=== PATIENT | male | born 1960 | race Caucasian/White ===

== ENCOUNTER 2016-05-06 00:06 | Emergency (ER) | payer OTHER ==
[~2016-05-06] VITALS: Ht 175.3 cm; Wt 89.0 kg
[2016-05-06 00:08] VITALS: BP 201/96; PULSE 98; RESP 18; TEMP 97.9; O2SAT 96
[2016-05-06 04:18] VITALS: BP 138/83; PULSE 76; RESP 16; TEMP 98.4; O2SAT 96
[2016-05-06 05:27] VITALS: BP 151/89; PULSE 69; RESP 18; O2SAT 95
--- NOTE | 2016-05-06 06:17 | PD ---
HPI Chief Complaint: Hypertension Time Seen by Provider: 05:32 Travel History International Travel<30 days: No Contact w/Intl Traveler<30days: No Traveled to known affect area: No History of Present Illness HPI Patient's 55 years old. He arrives complaining of a sharp shooting pain up her draining in his feet radiating up his leg to his stomach and into his head. The onset occurred while he was walking. He has walking quite a bit in fact he just returned to [facility] yesterday from [place] of state. After waiting in the waiting room all night long the shooting pains in the legs resolved and he has some mild pain in the occipital scalp distribution. He reports a history of hypertension and was previously on lisinopril 20 mg daily. He states typically ambulation causes the pain. He has had no trauma. [facility] Past Medical History Cardiovascular Problems: Yes (HTN) Hypertension: Yes Tetanus Vaccination: < 5 Years Influenza Vaccination: No Past Surgical History Other Surgery: Yes (HERNIA REPAIR) Social History Alcohol Use: No Tobacco Use: Yes (1 PPD ) Substance Use: No Allergies-Medications (Allergen,Severity, Reaction): Coded Allergies: Buspar (Verified Adverse Reaction, Intermediate, Burning, 05/06/16) Mobic (Verified Adverse Reaction, Intermediate, Burning, 05/06/16) Reported Meds & Prescriptions Reported Meds & Active Scripts Active No Active Prescriptions or Reported Medications Review of Systems Except as stated in HPI: all other systems reviewed are Neg Physical Exam Narrative GENERAL: 55 yo M, wnwd, nad SKIN: Warm and dry. HEAD: Atraumatic. Normocephalic. EYES: Pupils equal and round. No scleral icterus. No injection or drainage. ENT: No nasal bleeding or discharge. Mucous membranes pink and moist. NECK: Trachea midline. No JVD. CARDIOVASCULAR: Regular rate and rhythm. No murmur appreciated. RESPIRATORY: No accessory muscle use. Clear to auscultation. Breath sounds equal bilaterally. GASTROINTESTINAL: Abdomen soft, non-tender, nondistended. Hepatic and splenic margins not palpable. MUSCULOSKELETAL: No obvious deformities. No clubbing. No cyanosis. No edema. NEUROLOGICAL: Awake and alert. No obvious cranial nerve deficits. Motor grossly within normal limits. Normal speech. PSYCHIATRIC: Appropriate mood and affect; insight and judgment normal. Data Data Last Documented VS Vital Signs Date Time Temp Pulse Resp B/P Pulse Ox O2 Delivery O2 Flow Rate FiO2 2/3/17 05:27 69 18 151/89 95 Room Air 05/06/16 04:18 98.4 MDM Medical Decision Making Medical Screen Exam Complete: Yes Emergency Medical Condition: Yes Medical Record Reviewed: Yes Differential Diagnosis HTN, muscle strain, dehydration, malingering Narrative Course Lisinopril script. f/u w PMD. Diagnosis Primary Impression: HTN (hypertension) Qualified Code: I15.9 - Secondary hypertension Referrals: Patient Assistance Program 2 days Additional Instructions: You have a choice when it comes to health care, and we are glad that you chose [facility]. Hopefully, we have met your expectations on today's visit. You are welcome to return to [facility] at any time, as we are committed to meeting the health care needs of our community. Med/Other Pt SpecificInfo: Prescription(s) given Scripts Lisinopril 20 Mg Tab20 Mg PO DAILY #30 TAB Ref 2 Prov:Adilson Patel MD 05/06/16 Disposition: 01 DISCHARGE HOME Condition: Stable Adilson Patel MD May 06, 2016 06:17
[2016-05-06] MEDS ORDERED: LISI-515 PO (06:35)
[2016-05-06 06:51] VITALS: BP 155/74
[2016-06-20] MEDS ORDERED: METH125I2 IM (12:02)
[2016-08-01] MEDS ORDERED: FAMO20TA2 PO (10:33)
== END 2016-05-06 06:54 | disposition home or self-care (01) ==
LOC: NEPC 00:06
DX: I15.9 Secondary hypertension, unspecified (principal); R51 Headache; F17.200 Nicotine dependence, unspecified, uncomplicated
CPT/HCPCS: 99283

== ENCOUNTER 2016-06-09 14:11 | Observation (INO) | payer OTHER ==
[~2016-06-09] VITALS: Ht 175.3 cm; Wt 95.0 kg
[~2016-06-09 14:11] MED LIST: LISI-515 PO
[2016-06-09 14:15] VITALS: BP 119/68; PULSE 92; RESP 12; TEMP 99.7; O2SAT 92
[2016-06-09] MEDS ORDERED: SODIUM CHLORIDE 0.9% FLUSH 5 ML FLUSH IVF PRN ×2 (16:45→19:30)
[2016-06-09] MEDS ORDERED: MORPHINE SULFATE 4 MG/ML INJ IV PUSH ONE ×2 (16:45→19:30)
--- NOTE | 2016-06-09 16:58 | PD ---
HPI . Chest pain and shortness of breath Chief Complaint: Chest Pain Time Seen by Provider: 16:47 Travel History International Travel<30 days: No Contact w/Intl Traveler<30days: No Traveled to known affect area: No History of Present Illness HPI Patient presents with a three-day history of chest pain and shortness of breath. It has been worse for the past 2 days. He states that he is unable to smoke secondary to the pain. Pain is exacerbated by respirations. He does have a cough and a subjective fever. Patient initially states that he has COPD but takes no medication for it. However, subsequent states that he does have Advair which she uses twice daily rescue albuterol inhaler that he uses as needed. He has not used her rescue inhaler today. PFSH Past Medical History Cardiovascular Problems: Yes (HTN) Hypertension: Yes Past Surgical History Other Surgery: Yes (HERNIA REPAIR) Social History Alcohol Use: No Tobacco Use: Yes (1 PPD ) Substance Use: No Allergies-Medications (Allergen,Severity, Reaction): Coded Allergies: Buspar (Verified Adverse Reaction, Intermediate, Burning, 06/09/16) Mobic (Verified Adverse Reaction, Intermediate, Burning, 06/09/16) Reported Meds & Prescriptions Reported Meds & Active Scripts Active Lisinopril 20 Mg Tab 20 Mg PO DAILY Review of Systems Except as stated in HPI: all other systems reviewed are Neg General / Constitutional: Positive: Fever, Chills Cardiovascular: Positive: Chest Pain or Discomfort Respiratory: Positive: Cough, Shortness of Breath, Pleuritic Pain Physical Exam Narrative GENERAL: Patient who has a persistent cough and is otherwise in no acute distress. SKIN: Warm and dry. HEAD: Atraumatic. Normocephalic. EYES: Pupils equal and round. ENT: No nasal bleeding or discharge. Mucous membranes pink and moist. NECK: Trachea midline. Neck is supple. CARDIOVASCULAR: Regular rate and rhythm. Heart sounds are normal. RESPIRATORY: No accessory muscle use. Lungs have diffuse expiratory wheezing. GASTROINTESTINAL: Abdomen soft, non-tender, nondistended. MUSCULOSKELETAL: No obvious deformities. No edema. NEUROLOGICAL: Awake and alert. No obvious cranial nerve deficits. Motor grossly within normal limits. Normal speech. PSYCHIATRIC: Appropriate mood and affect; insight and judgment normal. Data Data Last Documented VS Vital Signs Date Time Temp Pulse Resp B/P Pulse Ox O2 Delivery O2 Flow Rate FiO2 06/09/16 14:15 99.7 92 12 119/68 92 Orders Electrocardiogram (06/09/16 ) Basic Metabolic Panel (Bmp) (06/09/16 16:42) Ckmb (Isoenzyme) Profile (06/09/16 16:42) Complete Blood Count With Diff (06/09/16 16:42) Magnesium (Mg) (06/09/16 16:42) Prothrombin Time / Inr (Pt) (06/09/16 16:42) Act Partial Throm Time (Ptt) (06/09/16 16:42) Troponin I (06/09/16 16:42) Ecg Monitoring (06/09/16 16:42) Bilateral Bp Monitoring (06/09/16 16:42) Iv Access Insert/Monitor (06/09/16 16:42) Oximetry (06/09/16 16:42) Oxygen Administration (06/09/16 16:42) Morphine Inj (Morphine Inj) (06/09/16 16:45) Sodium Chloride 0.9% Flush (Ns Flush) (06/09/16 16:45) Ct Pulmonary Angiogram (06/09/16 16:42) Albuterol-Ipratropium Neb (Duoneb Neb) (06/09/16 17:00) Methylprednisolone So Succ Inj (Solumedr (06/09/16 17:00) MDM Medical Decision Making Medical Screen Exam Complete: Yes Emergency Medical Condition: Yes Interpretation(s) EKG shows sinus bradycardia with a ventricular rate of 56. Elevation or depression. Differential Diagnosis Differential diagnosis of dyspnea includes but is not limited to congestive heart failure, pneumonia, wheezing, pneumothorax, pulmonary embolism Narrative Course Patient presents for the evaluation of chest pain and shortness of breath. He is wheezing. He will be given nebulizer treatments and Solu-Medrol pending his workup. His care is being turned over to Dr. Ring. Diagnosis Primary Impression: Chest pain Qualified Code: R07.9 - Chest pain, unspecified type Additional Impression: Dyspnea Qualified Code: R06.00 - Dyspnea, unspecified type Adri Cedillo MD Jun 09, 2016 16:58
[2016-06-09] MEDS ORDERED: methylPREDNISolone SOD SUCC 125 MG/2 ML VIAL IV PUSH ONE (17:00)
[2016-06-09] MEDS: RESP: ALBUTEROL 2.5 MG/IPRATROPIUM 0.5 MG NEB (SCH) INH ×2 (17:15→17:16)
[2016-06-09 17:24] VITALS: BP 137/81; PULSE 79; RESP 20; O2SAT 98
[2016-06-09 17:56] LABS: AUTOMATED NEUTROPHIL # 2.7 TH/MM3 (1.8-7.7); BASOPHIL % 0.4 % (0.0-2.0); EOSINOPHIL % 0.2 % (0.0-4.0); HEMATOCRIT 45.1 % (39.0-51.0); HEMO FLAGS DIFF FINAL; LYMPH % 26.8 % (9.0-44.0); LYMPHOCYTE # 1.2 TH/MM3 (1.0-4.8); MEAN CELL VOLUME 90.4 FL (80.0-100.0); MEAN CORPUSCULAR HEMOGLOBIN 32.2 PG (27.0-34.0); MEAN CORPUSCULAR HGB CONC 35.7 % (32.0-36.0); MONO % 12.1 % (0.0-8.0); NEUT % 60.5 % (16.0-70.0); PLATELET COUNT 144 TH/MM3 (150-450); RED BLOOD COUNT 4.99 MIL/MM3 (4.50-5.90); RED CELL DISTRIBUTION WIDTH 13.5 % (11.6-17.2); WHITE BLOOD COUNT 4.5 TH/MM3 (4.0-11.0)
[2016-06-09 18:08] VITALS: BP 137/81; PULSE 91; RESP 18; O2SAT 97
[2016-06-09 18:10] LABS: ANION GAP 9 MEQ/L (5-15); BICARBONATE 27.1 MEQ/L (21.0-32.0); BLOOD UREA NITROGEN 19 MG/DL (7-18); CHLORIDE 101 MEQ/L (98-107); GLOMERULAR FILTRATION RATE 73 ML/MIN (>89); POTASSIUM 4.1 MEQ/L (3.5-5.1); SODIUM (NA) 137 MEQ/L (136-145)
[2016-06-09 18:13] VITALS: BP 134/75; PULSE 90; RESP 18
[2016-06-09 18:13] LABS: CREATINE KINASE 196 U/L (39-308)
[2016-06-09 18:26] LABS: CKMB 1.6 NG/ML (0.5-3.6)
[2016-06-09] MEDS ORDERED: IOHEXOL 350 MG/ML 10 ML VIAL (for RAD DIAG) IV ONE (18:42)
--- NOTE | 2016-06-09 18:59 | RADRPT ---
EXAM DATE/TIME: 06/09/2016 18:41 [place] COMPARISON: No previous studies available for comparison. INDICATIONS : Short of breath; evaluate for pulmonary embolism. IV CONTRAST: 75 cc Omnipaque 350 (iohexol) IV RADIATION DOSE: 23.33 CTDIvol (mGy) MEDICAL HISTORY : Hypertension. SURGICAL HISTORY : None. ENCOUNTER: Initial ACUITY: 1 day PAIN SCALE: 0/10 LOCATION: chest TECHNIQUE: Volumetric scanning of the chest was performed using a pulmonary embolism protocol MIP images were re constructed. Using automated exposure control and adjustment of the mA and/or kV according to patien t size, radiation dose was kept as low as reasonably achievable to obtain optimal diagnostic quality images. FINDINGS: PULMONARY ARTERIES: No filling defects are seen in the pulmonary arteries through the segmental level. LUNGS: There is no consolidation or pneumothorax . No concerning pulmonary nodule is visualized. PLEURAE: There is no pleural thickening or pleural effusion. MEDIASTINUM: There is good visualization of the great vessels of the middle mediastinum. A 12 x 17 mm right hilar lymph node is present, nonspecific. No mediastinal lymphadenopathy seen. Calcification versus stent s een in the left anterior descending coronary artery. MUSCULOSKELETAL: Within normal limits for patient age. MISCELLANEOUS: Or abdomen only partly included on this study. Probable hepatosplenomegaly. There also appears to be diffuse wall thickening of the stomach. A small hiatal hernia is present. CONCLUSION: 1. No large pulmonary embolus. 2. 12 x 17 mm right hilar lymph node, nonspecific. 3. Calcification versus stent left anterior descending coronary artery. 4. Suspected hepatosplenomegaly. There is also apparent diffuse wall thickening of the stomach as cou ld be seen in the setting of a gastritis. Small hiatal hernia. Rodríguez Hogue MD on June 09, 2016 at 18:55 Board Certified Radiologist. This report was verified electronically.
[2016-06-09] MEDS ORDERED: PRED20 PO (19:08)
--- NOTE | 2016-06-09 19:08 | PD ---
Data Data Last Documented VS Vital Signs Date Time Temp Pulse Resp B/P Pulse Ox O2 Delivery O2 Flow Rate FiO2 06/09/16 18:13 90 18 134/75 06/09/16 18:08 97 06/09/16 17:24 Nasal Cannula 2 06/09/16 14:15 99.7 Orders Electrocardiogram (06/09/16 ) Basic Metabolic Panel (Bmp) (06/09/16 16:42) Ckmb (Isoenzyme) Profile (06/09/16 16:42) Complete Blood Count With Diff (06/09/16 16:42) Magnesium (Mg) (06/09/16 16:42) Prothrombin Time / Inr (Pt) (06/09/16 16:42) Act Partial Throm Time (Ptt) (06/09/16 16:42) Troponin I (06/09/16 16:42) Ecg Monitoring (06/09/16 16:42) Bilateral Bp Monitoring (06/09/16 16:42) Iv Access Insert/Monitor (06/09/16 16:42) Oximetry (06/09/16 16:42) Oxygen Administration (06/09/16 16:42) Morphine Inj (Morphine Inj) (06/09/16 16:45) Sodium Chloride 0.9% Flush (Ns Flush) (06/09/16 16:45) Ct Pulmonary Angiogram (06/09/16 16:42) Albuterol-Ipratropium Neb (Duoneb Neb) (06/09/16 17:00) Methylprednisolone So Succ Inj (Solumedr (06/09/16 17:00) CKMB (06/09/16 17:22) CKMB% (06/09/16 17:22) Iohexol 350 Inj (Omnipaque 350 Inj) (06/09/16 18:42) Labs Laboratory Tests Test 06/09/16 17:22 White Blood Count 4.5 TH/MM3 Red Blood Count 4.99 MIL/MM3 Hemoglobin 16.1 GM/DL Hematocrit 45.1 % Mean Corpuscular Volume 90.4 FL Mean Corpuscular Hemoglobin 32.2 PG Mean Corpuscular Hemoglobin 35.7 % Concent Red Cell Distribution Width 13.5 % Platelet Count 144 TH/MM3 Mean Platelet Volume 10.5 FL Neutrophils (%) (Auto) 60.5 % Lymphocytes (%) (Auto) 26.8 % Monocytes (%) (Auto) 12.1 % Eosinophils (%) (Auto) 0.2 % Basophils (%) (Auto) 0.4 % Neutrophils # (Auto) 2.7 TH/MM3 Lymphocytes # (Auto) 1.2 TH/MM3 Monocytes # (Auto) 0.5 TH/MM3 Eosinophils # (Auto) 0.0 TH/MM3 Basophils # (Auto) 0.0 TH/MM3 CBC Comment DIFF FINAL Differential Comment Prothrombin Time 11.0 SEC Prothromb Time International 1.0 RATIO Ratio Activated Partial 33.0 SEC Thromboplast Time Sodium Level 137 MEQ/L Potassium Level 4.1 MEQ/L Chloride Level 101 MEQ/L Carbon Dioxide Level 27.1 MEQ/L Anion Gap 9 MEQ/L Blood Urea Nitrogen 19 MG/DL Creatinine 1.06 MG/DL Estimat Glomerular Filtration 73 ML/MIN Rate Random Glucose 85 MG/DL Calcium Level 9.1 MG/DL Magnesium Level 2.0 MG/DL Total Creatine Kinase 196 U/L Creatine Kinase MB 1.6 NG/ML Troponin I LESS THAN 0.02 NG/ML MDM Supervised Visit with ELAN: No Narrative Course This is a 55-year-old male who was seen primarily by Dr. Cedillo and treated for a COPD exacerbation. Labs were obtained which were reassuring with a normal troponin. CT angiogram was performed which demonstrates no pulmonary embolism. Patient will be discharged with prednisone. The patient was provided copy of his CT scan results and the incidental findings were discussed with him. Diagnosis Primary Impression: Chest pain Qualified Code: R07.9 - Chest pain, unspecified type Additional Impression: Dyspnea Qualified Code: R06.00 - Dyspnea, unspecified type Patient Instructions: General Instructions Additional Instruction: If you develop severe shortness of breath, chest pain, or difficulty breathing return to the emergency department. Use albuterol every 4 hours for the next 2 days. Then use as needed for wheezing. Complete your course of steroids. Follow up with your primary care physician in 2-3 days if your symptoms have not improved. Med/Other Pt SpecificInfo: Prescription(s) given Scripts Prednisone 20 Mg Tab40 Mg PO DAILY 4 Days Prov:Radha Ring MD 06/09/16 Disposition: 01 DISCHARGE HOME Condition: Stable Radha Ring MD Jun 09, 2016 19:08
--- NOTE | 2016-06-09 19:26 | PD ---
Data Data Last Documented VS Vital Signs Date Time Temp Pulse Resp B/P Pulse Ox O2 Delivery O2 Flow Rate FiO2 06/09/16 18:13 90 18 134/75 06/09/16 18:08 97 06/09/16 17:24 Nasal Cannula 2 06/09/16 14:15 99.7 Orders Electrocardiogram (06/09/16 ) Basic Metabolic Panel (Bmp) (06/09/16 16:42) Ckmb (Isoenzyme) Profile (06/09/16 16:42) Complete Blood Count With Diff (06/09/16 16:42) Magnesium (Mg) (06/09/16 16:42) Prothrombin Time / Inr (Pt) (06/09/16 16:42) Act Partial Throm Time (Ptt) (06/09/16 16:42) Troponin I (06/09/16 16:42) Ecg Monitoring (06/09/16 16:42) Bilateral Bp Monitoring (06/09/16 16:42) Iv Access Insert/Monitor (06/09/16 16:42) Oximetry (06/09/16 16:42) Oxygen Administration (06/09/16 16:42) Morphine Inj (Morphine Inj) (06/09/16 16:45) Sodium Chloride 0.9% Flush (Ns Flush) (06/09/16 16:45) Ct Pulmonary Angiogram (06/09/16 16:42) Albuterol-Ipratropium Neb (Duoneb Neb) (06/09/16 17:00) Methylprednisolone So Succ Inj (Solumedr (06/09/16 17:00) CKMB (06/09/16 17:22) CKMB% (06/09/16 17:22) Iohexol 350 Inj (Omnipaque 350 Inj) (06/09/16 18:42) Aspirin Chew (Aspirin Chew) (06/09/16 19:30) Labs Laboratory Tests Test 06/09/16 17:22 White Blood Count 4.5 TH/MM3 Red Blood Count 4.99 MIL/MM3 Hemoglobin 16.1 GM/DL Hematocrit 45.1 % Mean Corpuscular Volume 90.4 FL Mean Corpuscular Hemoglobin 32.2 PG Mean Corpuscular Hemoglobin 35.7 % Concent Red Cell Distribution Width 13.5 % Platelet Count 144 TH/MM3 Mean Platelet Volume 10.5 FL Neutrophils (%) (Auto) 60.5 % Lymphocytes (%) (Auto) 26.8 % Monocytes (%) (Auto) 12.1 % Eosinophils (%) (Auto) 0.2 % Basophils (%) (Auto) 0.4 % Neutrophils # (Auto) 2.7 TH/MM3 Lymphocytes # (Auto) 1.2 TH/MM3 Monocytes # (Auto) 0.5 TH/MM3 Eosinophils # (Auto) 0.0 TH/MM3 Basophils # (Auto) 0.0 TH/MM3 CBC Comment DIFF FINAL Differential Comment Prothrombin Time 11.0 SEC Prothromb Time International 1.0 RATIO Ratio Activated Partial 33.0 SEC Thromboplast Time Sodium Level 137 MEQ/L Potassium Level 4.1 MEQ/L Chloride Level 101 MEQ/L Carbon Dioxide Level 27.1 MEQ/L Anion Gap 9 MEQ/L Blood Urea Nitrogen 19 MG/DL Creatinine 1.06 MG/DL Estimat Glomerular Filtration 73 ML/MIN Rate Random Glucose 85 MG/DL Calcium Level 9.1 MG/DL Magnesium Level 2.0 MG/DL Total Creatine Kinase 196 U/L Creatine Kinase MB 1.6 NG/ML Troponin I LESS THAN 0.02 NG/ML MDM Supervised Visit with ELAN: No Narrative Course This is a 55-year-old male who presents to the emergency department with exertional chest pain and shortness of breath. He does have a history of COPD and on arrival he had been wheezing per Dr. Cedillo' assessment. He received bronchodilator treatments and methylprednisolone in the emergency department and his wheezing has improved. I didn't see the patient on arrival. He does describe chest discomfort in both sides of his chest which is exertional and resolves at rest. His CT of the chest demonstrates calcification in the LAD. He does have Q waves in the inferior leads on EKG. Patient hasn't had a stress test in several years. I think given his CT findings, the exertional component to his chest pain and his abnormal EKG, I think it is reasonable to keep him for serial cardiac enzymes and risk stratification in the chest pain center. I think he is stable for the chest pain center. I'll write for some as needed albuterol and he should be discharged with prednisone which I have written for, but I think the question for admission is primarily whether this chest pain is cardiac in nature. Diagnosis Primary Impression: Chest pain Qualified Code: R07.9 - Chest pain, unspecified type Additional Impression: Dyspnea Qualified Code: R06.00 - Dyspnea, unspecified type Patient Instructions: General Instructions Additional Instruction: If you develop severe shortness of breath, chest pain, or difficulty breathing return to the emergency department. Use albuterol every 4 hours for the next 2 days. Then use as needed for wheezing. Complete your course of steroids. Follow up with your primary care physician in 2-3 days if your symptoms have not improved. Scripts Prednisone 20 Mg Tab40 Mg PO DAILY 4 Days Prov:Radha Ring MD 06/09/16 Disposition: 01 DISCHARGE HOME Condition: Stable Radha Ring MD Jun 09, 2016 19:26
[2016-06-09] MEDS ORDERED: ASPIRIN 81 MG CHEW TAB CHEW ONE (19:30)
[2016-06-09] MEDS ORDERED: RESP: ALBUTEROL 2.5 MG/3 ML NEB (SCH) NEB PRN (19:30)
[2016-06-09] MEDS: SODIUM CHLORIDE 0.9% FLUSH 5 ML FLUSH IVF SCH (20:51)
[2016-06-09 21:32] VITALS: BP 123/65; PULSE 70; RESP 16; O2SAT 95
[2016-06-10] VITALS (7 sets, daily range): BP systolic 119–132; BP diastolic 60–76; PULSE 60–85; RESP 18; TEMP 97.8–98.4; O2SAT 95–97
[2016-06-10] MEDS ORDERED: NITROGLYCERIN 0.4 MG SL 25 TABS/BTL SL PRN (08:30)
[2016-06-10] MEDS ORDERED: ACETAMINOPHEN 500 MG CPLT PO PRN (08:30)
[2016-06-10] MEDS ORDERED: ONDANSETRON HCL 4 MG/2 ML VIAL IV PRN (08:30)
[2016-06-10] MEDS ORDERED: LISINOPRIL 20 MG TAB PO SCH (09:00)
[2016-06-10] MEDS ORDERED: ASPIRIN 325 MG TAB PO SCH (09:00)
[2016-06-10] MEDS: SODIUM CHLORIDE 0.9% FLUSH 5 ML FLUSH IVF SCH (09:08)
--- NOTE | 2016-06-10 09:43 | HHI.HP ---
HPI Primary Care Physician No Primary Care Physician Chief Complaint Chest pain and shortness of breath History of Present Illness 55-year-old patient with known hypertension and COPD presents to the emergency room with 2 days of coughing, chest pain, and shortness of breath. Was unable to smoked for 2 days due to pain. Taking deep breaths and coughing makes chest pain worse. 8 different type of chest pain did not begin until arrival to emergency room. Location right lower chest, radiates to right anterior chest. Severity 7/10, described as "waves of shooting pain that last only a few minutes." Associated symptoms nausea, no vomiting or diaphoresis. No precipitating or relieving factors. Also complains of generalized discomfort throughout his whole body for at least 6 months. Review of Systems General: No fatigue,weakness, fever, chills, or recent illness HEENT: No BASHIR, no vision changes, no nasal congestion or drainage, no dysphasia CV: Continues to have chest discomfort when taking deep breath or coughing. Right-sided chest shooting pains improved. No chest pressure or palpitations. Endorses intermittent leg pain "for a long time. "Leg pain made worse with walking improved with rest. RESP: States "my lungs still hurt to breathe." Shortness of breath has improved. Coughing continues, improved somewhat after receiving steroids. No hemoptysis. GI: No nausea, vomiting, bowel changes, diarrhea, constipation, pain, distention , melena, blood in the stool. No change in appetite, no unintentional weight gain or weight loss : No dysuria, urgency, frequency. Endorses while living in [place] in [place] he was told he has prostate polyps. Never completed recommended prostate biopsy. Erectile dysfunctionCialis prescription although is unable to afford. EXT: No lower leg edema. 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 MS: Chronic lower back pain, No change in ROM NEURO: No change in memory, dizziness, difficulty with balance, LOC, motor/ sensory deficits PSYCH: No anxiety or depression. Is currently homeless and unemployed. SKIN: No rashes, no concerning lesions Past Family Social History Allergies: Coded Allergies: Buspar (Verified Adverse Reaction, Intermediate, Burning, 06/09/16) Mobic (Verified Adverse Reaction, Intermediate, Burning, 06/09/16) Past Medical History Hypertension, BPH, prostate polyps, chronic low back pain Past Surgical History Hernia repair Reported Medications Reported Meds & Active Scripts Active Prednisone 20 Mg Tab 40 Mg PO DAILY 4 Days Lisinopril 20 Mg Tab 20 Mg PO DAILY Active Ordered Medications Current Medications Medications (Trade) Dose Ordered Sig/Alex Route Start Time Stop Time Status Last Admin (Tylenol) 500 mg Q4H PRN PO 06/10/16 08:30 (Zofran Inj) 4 mg Q6H PRN IV 06/10/16 08:30 (Nitrostat Sl) 0.4 mg Q5M PRN SL 06/10/16 08:30 (Aspirin) 325 mg DAILY PO 06/10/16 09:00 06/10/16 09:08 (Prinivil) 20 mg DAILY PO 06/10/16 09:00 06/10/16 09:08 (Morphine Inj) 4 mg NOW ONCE IV 06/10/16 10:00 06/10/16 10:01 Family History Noncontributory for early onset cardiovascular disease. States mother and father of lung/throat cancer. Social History He is , unemployed, homeless. Smokes half pack of cigarettes daily this is down from 1-1/2 pack daily has smoked since age 18. Denies any alcohol or illegal drug use. Known hypertension. No known diabetes. Years ago was told his lipid panel was borderline. Past cardiac testing Few years ago had an exercise stress test which was unremarkable. Never had cardiac catheterization or required a striper spray gun. Physical Exam Vital Signs Vital Signs Date Time Temp Pulse Resp B/P Pulse Ox O2 Delivery O2 Flow Rate FiO2 06/10/16 09:04 97 Nasal Cannula 2.00 06/10/16 08:00 97.8 73 18 132/60 97 06/10/16 08:00 62 06/10/16 04:09 60 06/10/16 03:41 98.4 85 18 121/76 97 06/10/16 03:00 60 06/10/16 00:00 98.2 72 18 119/63 95 06/09/16 21:32 70 16 123/65 95 Nasal Cannula 2 06/09/16 18:13 90 18 134/75 06/09/16 18:08 91 18 137/81 97 06/09/16 17:24 98 Nasal Cannula 2 06/09/16 17:24 97 Nasal Cannula 2 06/09/16 17:24 79 20 137/81 06/09/16 17:24 98 Nasal Cannula 2.00 06/09/16 14:15 99.7 92 12 119/68 92 Physical Exam GENERAL: Alert WN, WD, NAD, pleasant, male who appears older than stated age HEAD: NC, AT EYES: Sclera clear, conjunctiva without injection, pupils equal and round ENT: Mucous membranes pink and moist NECK: Supple, no masses, trachea midline CV: RRR, without murmur, rub, gallop, no JVD, S1-S2 no S3-S4. No carotid bruits RESP: lungs throughout bilateral prolonged expiratory phase, expiratory wheezing. Diminished lung sounds throughout. No crackles. Symmetrical chest rise, nonlabored, able to speak in full sentences. ABD: Soft, NT, ND, no masses, positive bowel tones BACK: No CVAT, no scoliosis EXT: Pulses +14, no dependent edema MS: Normal tone 4 extremities, nontender, no obvious deformities, full range of motion NEURO: CN II through CN XII grossly intact, motor strength 5/5, gait WNL PSYCH: A+O 3, pleasant affect, appropriate speech, appropriate mood and affect , insight and judgment SKIN: Normal turgor, normal texture, no lesions, no rashes Laboratory Laboratory Tests Test 06/09/16 06/09/16 06/09/16 17:22 20:30 23:40 White Blood Count 4.5 Red Blood Count 4.99 Hemoglobin 16.1 Hematocrit 45.1 Mean Corpuscular Volume 90.4 Mean Corpuscular Hemoglobin 32.2 Mean Corpuscular Hemoglobin 35.7 Concent Red Cell Distribution Width 13.5 Platelet Count 144 Mean Platelet Volume 10.5 Neutrophils (%) (Auto) 60.5 Lymphocytes (%) (Auto) 26.8 Monocytes (%) (Auto) 12.1 Eosinophils (%) (Auto) 0.2 Basophils (%) (Auto) 0.4 Neutrophils # (Auto) 2.7 Lymphocytes # (Auto) 1.2 Monocytes # (Auto) 0.5 Eosinophils # (Auto) 0.0 Basophils # (Auto) 0.0 CBC Comment DIFF FINAL Differential Comment Prothrombin Time 11.0 Prothromb Time International 1.0 Ratio Activated Partial 33.0 Thromboplast Time Sodium Level 137 Potassium Level 4.1 Chloride Level 101 Carbon Dioxide Level 27.1 Anion Gap 9 Blood Urea Nitrogen 19 Creatinine 1.06 Estimat Glomerular Filtration 73 Rate Random Glucose 85 Calcium Level 9.1 Magnesium Level 2.0 Total Creatine Kinase 196 Creatine Kinase MB 1.6 Troponin I LESS THAN 0.02 LESS THAN 0.02 LESS THAN 0.02 Result Diagram: 06/09/16 1722 06/09/16 [address] Angiography 06/09/16 1642 Signed Impressions: Service Date/Time: June 18:41 - CONCLUSION: 1. No large pulmonary embolus. 2. 12 x 17 mm right hilar lymph node, nonspecific. 3. Calcification versus stent left anterior descending coronary artery. 4. Suspected hepatosplenomegaly. There is also apparent diffuse wall thickening of the stomach as could be seen in the setting of a gastritis. Small hiatal hernia. Rodríguez Hogue MD Course EKGs 3 EKGs show normal sinus rhythm, no ST or T-segment changes, inferior Q waves. Assessment and Plan Assessment and Plan #1 chest painadmitted to chest pain center. Ruled out with 3 sets of EKGs, cardiac enzymes, and monitored overnight. Will be seen and evaluated by Dr. Dinesh Mcdonald. Discussed with patient need for further cardiac testing would include stress test. Will order chemical stress test she is unable to walk on treadmill. Further disposition to follow assessment of striper spray gun in further cardiac testing. #2 COPD exacerbationcontinue prednisone, respiratory treatments scheduled and when necessary #3 hypertensionreorder lisinopril, continue to monitor #4 tobacco usediscussed and counseled on the importance of tobacco sensation. Encouraged him to quit smoking. Case management consult for assistance to [facility]. Dolores Regalado Jun 10, 2016 09:43
[2016-06-10] MEDS ORDERED: MORPHINE SULFATE 4 MG/ML INJ IV ONE (10:00)
[2016-06-10] MEDS ORDERED: REGADENOSON INJ 0.4 MG/5 ML SYR ONE (10:38)
--- NOTE | 2016-06-10 11:34 | RADRPT ---
EXAM DATE/TIME: 06/10/2016 09:40 [facility] COMPARISON: No previous studies available for comparison. INDICATIONS : Chest pain for 3 days. Current smoker. Angina. DOSE: 27.3 mCi Tc99m Myoview at stress. 8.5 mCi Tc99m Myoview at rest. 0.4 mg Lexiscan STRESS SYMPTOMS: Dyspnea and weird feeling. EJECTION FRACTION: 57% MEDICAL HISTORY : Hypertension. Chronic obstructive pulmonary disease. Asthma. SURGICAL HISTORY : Inguinal hernia repair. ENCOUNTER: Initial ACUITY: 3 days PAIN SCALE: 4/10 LOCATION: Bilateral chest TECHNIQUE: The patient underwent pharmacologic stress with infusion of prescribed dose. Continuous ECG tracing was monitored during stress. Gated SPECT imaging was performed after stress and conventional SPECT i maging was performed at rest. The examination was performed on a SPECT/CT scanner, both attenuation and non-corrected datasets were reviewed. FINDINGS: DISTRIBUTION: The maximum perfused segment at stress is in the septal wall. PERFUSION STUDY: Small focus of reversible perfusion deficit seen of the anterolateral wall. GATED STUDY: There is intact wall motion and thickening without hypokinetic or dyskinetic segments. CONCLUSION: Small, mild area of stress-induced ischemia of the anterolateral wall. RISK CATEGORY: Intermediate Rodríguez Hogue MD on June 10, 2016 at 11:31 Board Certified Radiologist. This report was verified electronically.
--- NOTE | 2016-06-10 11:57 | HHI.DCPOC ---
Discharge Care Plan Diagnosis: (1) Atypical chest pain (2) Hypertension (3) Tobacco abuse (4) COPD (chronic obstructive pulmonary disease) Goals to Promote Your Health * To prevent worsening of your condition and complications * To maintain your health at the optimal level Directions to Meet Your Goals Take your medications as prescribed Follow your dietary instruction Follow activity as directed Keep your appointments as scheduled Take your immunizations and boosters as scheduled If your symptoms worsen call your PCP, if no PCP go to Urgent Care Center or Emergency Room Smoking is Dangerous to Your Health. Avoid second hand smoke Call the 24-hour hour crisis hotline for domestic abuse at Dolores Regalado Jun 10, 2016 11:57
[2016-06-10] MEDS ORDERED: ADVA500A INH ×2 (12:41→14:18)
[2016-06-10] MEDS ORDERED: ALBUAER3 INH ×2 (13:08→14:18)
--- NOTE | 2016-06-10 14:15 | TR ---
Date Performed: 06/10/2016 Time Performed: 10:11:39 DOCTOR: Dinesh Mcdonald DRUG LIST: CLINICAL HISTORY: REASON FOR TEST: REASON FOR ENDING: OBSERVATION: CONCLUSION: Lexiscan stress test was performed under standard four minute protocol. Radionuclid e was injected one minute prior to ending the test. No electrocardiographic abormalities were present to suggest ischemia. Nuclear imaging and interpretation are pending. COMMENTS:
--- NOTE | 2016-06-10 14:31 | EKG ---
Date Performed: 06/09/2016 Time Performed: 23:45:09 PTAGE: 55 years EKG: Sinus rhythm INDETERMINATE AXIS LEFT POSTERIOR FASCICULAR BLOCK POSSIBLE INFERIOR MYOCARDIAL INFARCTION ABNORMAL ECG PREVIOUS TRACING : 06/09/2016 19.31 Compared to previous tracingQ waves inferiorly are new. DOCTOR: Dinesh Mcdonald Interpretating Date/Time 06/10/2016 14:29:53
--- NOTE | 2016-06-10 14:32 | EKG ---
Date Performed: 06/09/2016 Time Performed: 14:44:49 PTAGE: 55 years EKG: Sinus rhythm INDETERMINATE AXIS PATTERN CONSISTENT WITH PULMONARY DISEASE INFERIOR MYOCARDIAL INFARCTION ABNORMAL ECG NO PREVIOUS TRACING DOCTOR: Dinesh Mcdonald Interpretating Date/Time 06/10/2016 14:31:59
--- NOTE | 2016-06-10 14:32 | EKG ---
Date Performed: 06/09/2016 Time Performed: 19:31:14 PTAGE: 55 years EKG: Sinus rhythm INDETERMINATE AXIS MODERATE INTRAVENTRICULAR CONDUCTION DELAY BORDERLINE ECG PREVIOUS TRACING : 06/09/2016 14.44 Compared to previous tracing ,Q waves now longer present. DOCTOR: Dinesh Mcdonald Interpretating Date/Time 06/10/2016 14:31:49
[2016-06-20] MEDS ORDERED: METH125I2 IM (12:02)
[2016-08-01] MEDS ORDERED: FAMO20TA2 PO (10:33)
== END 2016-06-10 19:20 | disposition home or self-care (01) ==
LOC: NEPA 14:11 → NEDA 19:28 → NEPGCP 22:31
DX: R07.89 Other chest pain (principal); J44.9 Chronic obstructive pulmonary disease, unspecified; I10 Essential (primary) hypertension; N40.0 Benign prostatic hyperplasia without lower urinary tract symptoms; M54.5 Low back pain; G89.29 Other chronic pain; J44.1 Chronic obstructive pulmonary disease with (acute) exacerbation; F17.200 Nicotine dependence, unspecified, uncomplicated; Z88.8 Allergy status to other drugs, medicaments and biological substances; Z79.52 Long term (current) use of systemic steroids
CPT/HCPCS: 71275; 78452; 80048; 82550; 82552; 83735; 84484; 85025; 85610; 85730; 93005; 93017; 94640; 94664; 96374; 96375; 99285; A9502; G0378; J2270; J2785; J2930; Q9967

== ENCOUNTER → 2016-07-29 | Outpatient (CLI) | payer OTHER ==
[~2016-07-29] MED LIST changes: +ADVA500A INH; +ALBUAER3 INH; +FAMO20TA2 PO
[2016-07-29 11:28] LABS: HDL CHOLESTEROL 51.9 MG/DL (40.0-60.0)
== END ==
LOC: CLAB 10:34
PROVIDERS: ATTEND Family Medicine
DX: I10 Essential (primary) hypertension (principal); J44.9 Chronic obstructive pulmonary disease, unspecified; Z72.0 Tobacco use
CPT/HCPCS: 36415; 80061